=== PATIENT | female | born 1980 | race Two or more races ===

== ENCOUNTER 2022-05-12 10:12 | Emergency (ER) | payer OTHER ==
[2022-05-12 10:22] VITALS: BP 132/84; PULSE 79; RESP 18; TEMP 98.6; BMI 26.7
[2022-05-12] MEDS ORDERED: ACETAMINOPHEN 500 MG TABLET (FP) PO ONE (11:20)
[2022-05-12] MEDS ORDERED: BENZOCAINE/MENTH/CETYLPYRD CL 1 EACH LOZENGE MM ONE ×2 (11:26→11:29)
[2022-05-12 12:17] LABS: THROAT:GRP A STREP NOT DETECTED (NOTDETECTED)
== END 2022-05-12 12:43 | disposition home or self-care (01) ==
LOC: JER 10:12
DX: J02.9 Acute pharyngitis, unspecified (principal); R09.81 Nasal congestion; H10.31 Unspecified acute conjunctivitis, right eye; Z20.822 Contact with and (suspected) exposure to COVID-19
CPT/HCPCS: 0241U-QW; 87070; 87651; 99283-25

== ENCOUNTER 2022-07-01 21:15 | Emergency (ER) | payer OTHER ==
[2022-07-01 21:23] VITALS: RESP 18; BMI 27.3
[2022-07-01] MEDS ORDERED: ACETAMINOPHEN 1000 MG/100 ML BAG IVPB ONE (21:53)
[2022-07-01] MEDS ORDERED: LACTATED RINGERS SOLUTION 1000 ML INFUS.BAG IV ONE (21:53)
[2022-07-01] MEDS ORDERED: ONDANSETRON 4 MG/2 ML VIAL ONE (21:54)
[2022-07-01] MEDS ORDERED: ACETAMINOPHEN INJECTION 100 ML IVPB ONE (21:54)
[2022-07-01 22:24] LABS: BASO % 0.2 % (0-2.0); EOS % 0.5 % (0-4.5); HEMATOCRIT 31.8 % (32.4-45.2); HEMOGLOBIN 10.7 GM/dL (10.7-15.3); LYMPH % 6.8 % (8-40); MCH 26.8 pg (25.7-33.7); MCHC 33.7 g/dl (32.0-36.0); MEAN CELL VOLUME 79.6 fl (80-96); MEAN PLT VOLUME 9.6 fl (7.5-11.1); MONO % 17.8 % (3.8-10.2); NEUT % 74.7 % (42.8-82.8); PLATELET COUNT 248 10^3/uL (134-434); RDW 16.3 % (11.6-15.6); WHITE BLOOD COUNT 7.2 K/mm3 (4.0-10.0)
[2022-07-01 22:26] LABS: HCG,QUALITATIVE URINE Negative
[2022-07-01 22:27] LABS: EPI CELLS 35 /uL (0-25.1); HYALINE CASTS 0 /uL (0-3.1); URINE APPEARANCE CLEAR; URINE BACTERIA 249 /uL (0-1359); URINE BILIRUBIN NEGATIVE (NEGATIVE); URINE COLOR YELLOW; URINE GLUCOSE (UA) NEGATIVE (NEGATIVE); URINE KETONE NEGATIVE (NEGATIVE); URINE LEUK ESTERASE NEGATIVE (NEGATIVE); URINE NITRITE NEGATIVE (NEGATIVE); URINE PROTEIN 2+ (NEGATIVE); URINE RBC 62 /uL (0-23.9); URINE UROBILINOGEN 0.2 mg/dL (0.2-1.0); URINE WBC 9 /uL (0-25.8)
[2022-07-01 22:31] LABS: INR 1.1 (0.83-1.09); PROTHROMBIN TIME (PATIENT) 12.8 SEC (9.7-13.0)
[2022-07-01 22:34] LABS: ACTIVATED PTT 29.7 SECONDS (25.2-36.5)
[2022-07-01] MEDS ORDERED: morphine CARPU-JECT 4 MG/1 ML DISP.SYRIN IVPUSH ONE (22:35)
[2022-07-01] MEDS ORDERED: morphine SULFATE 4 MG/ML VIAL ONE (22:40)
[2022-07-01 22:41] LABS: POTASSIUM 3.5 mmol/L (3.5-5.1)
[2022-07-01 22:43] LABS: CALCIUM 9.2 mg/dL (8.5-10.1)
[2022-07-01 22:44] LABS: ALBUMIN 3.9 g/dl (3.4-5.0); BLOOD UREA NITROGEN 9.1 mg/dL (7-18)
[2022-07-01 22:47] LABS: CREATININE 0.7 mg/dL (0.55-1.3)
[2022-07-01 22:49] LABS: TOT PROT 7.7 g/dl (6.4-8.2)
[2022-07-01 22:56] LABS: BILIRUBIN,TOTAL 0.2 mg/dL (0.2-1)
[2022-07-02 00:52] VITALS: BP 128/77; PULSE 93; TEMP 98.4
== END 2022-07-02 01:38 | disposition home or self-care (01) ==
LOC: JER 21:15
PROC: 3E033NZ Introduction of Analgesics, Hypnotics, Sedatives into Peripheral Vein, Percutaneous Approach (ICD-10-PCS; principal; 2022-07-01)
PROC: 3E033GC Introduction of Other Therapeutic Substance into Peripheral Vein, Percutaneous Approach (ICD-10-PCS; 2022-07-01)
PROC: 3E033GC Introduction of Other Therapeutic Substance into Peripheral Vein, Percutaneous Approach (ICD-10-PCS; 2022-07-01)
DX: R10.31 Right lower quadrant pain (principal); R50.9 Fever, unspecified; R30.0 Dysuria; J10.1 Influenza due to other identified influenza virus with other respiratory manifestations; Z20.822 Contact with and (suspected) exposure to COVID-19
CPT/HCPCS: 0241U-QW; 36415; 74177-TC; 80053; 81003; 83605; 84703; 85025; 85610; 85730; 86850; 86900; 86901; 87040; 87086; 99285-25; Q9967

== ENCOUNTER 2023-02-23 16:56 | Emergency (ER) | payer OTHER ==
[2023-02-23 17:07] VITALS: BP 137/86; PULSE 82; RESP 17; TEMP 98.4; BMI 28.3
[2023-02-23 18:53] LABS: BASO % 0.5 % (0-2.0); EOS % 0.6 % (0-4.5); HEMATOCRIT 33.1 % (32.4-45.2); HEMOGLOBIN 10.6 GM/dL (10.7-15.3); LYMPH % 19.8 % (8-40); MCH 25.8 pg (25.7-33.7); MCHC 31.9 g/dl (32.0-36.0); MEAN CELL VOLUME 80.9 fl (80-96); MEAN PLT VOLUME 8.6 fl (7.5-11.1); NEUT % 67.1 % (42.8-82.8); PLATELET COUNT 336 10^3/uL (134-434); RBC 4.09 M/mm3 (3.60-5.2); RDW 14.8 % (11.6-15.6); WHITE BLOOD COUNT 8.2 K/mm3 (4.0-10.0)
[2023-02-23 19:45] LABS: POTASSIUM 3.3 mmol/L (3.5-5.1)
[2023-02-23 19:46] LABS: CALCIUM 9.5 mg/dL (8.5-10.1)
[2023-02-23 19:47] LABS: BLOOD UREA NITROGEN 10.6 mg/dL (7-18)
[2023-02-23 19:50] LABS: CREATININE 0.6 mg/dL (0.55-1.3)
[2023-02-23] MEDS ORDERED: LIDOCAINE HCL 1%, 10 MG/ML (20ML VIAL) ONE (22:55)
[2023-02-23] MEDS ORDERED: AMOX TR/POT CLAV 875MG/125MG TABLETS (FP) PO ONE (23:27)
[2023-02-23] MEDS ORDERED: AMOX TR/POT CLAV 875MG/125MG TABLETS (FP) ONE (23:33)
== END 2023-02-23 23:44 | disposition home or self-care (01) ==
LOC: JERFT 16:56
DX: K02.9 Dental caries, unspecified (principal); K08.89 Other specified disorders of teeth and supporting structures; R22.0 Localized swelling, mass and lump, head
CPT/HCPCS: 36415; 70487-TC; 80048; 84703; 85025; 99285-25

== ENCOUNTER 2023-12-04 11:22 | Emergency (ER) | payer OTHER ==
[2023-12-04 11:29] VITALS: BP 140/97; PULSE 82; RESP 17; BMI 28.3
[2023-12-04 12:44] LABS: BASO % 0.4 % (0-2.0); EOS % 0.7 % (0-4.5); HEMOGLOBIN 10.7 GM/dL (10.7-15.3); LYMPH % 20.5 % (8-40); MCH 22.7 pg (25.7-33.7); MCHC 31.6 g/dl (32.0-36.0); MEAN CELL VOLUME 71.7 fl (80-96); MEAN PLT VOLUME 8.6 fl (7.5-11.1); MONO % 8.5 % (3.8-10.2); NEUT % 69.9 % (42.8-82.8); PLATELET COUNT 345 10^3/uL (134-434); RBC 4.74 M/mm3 (3.60-5.2); RDW 17.1 % (11.6-15.6); WHITE BLOOD COUNT 8.2 K/mm3 (4.0-10.0)
[2023-12-04 12:46] LABS: EPI CELLS 30 /uL (0-25.1); HYALINE CASTS 0 /uL (0-3.1); URINE APPEARANCE CLEAR; URINE BACTERIA 681 /uL (0-1359); URINE BILIRUBIN NEGATIVE (NEGATIVE); URINE COLOR YELLOW; URINE GLUCOSE (UA) NEGATIVE (NEGATIVE); URINE KETONE NEGATIVE (NEGATIVE); URINE LEUK ESTERASE 3+ (NEGATIVE); URINE NITRITE NEGATIVE (NEGATIVE); URINE PROTEIN NEGATIVE (NEGATIVE); URINE RBC 15 /uL (0-23.9); URINE UROBILINOGEN 0.2 mg/dL (0.2-1.0); URINE WBC 82 /uL (0-25.8)
[2023-12-04 13:13] LABS: CHLORIDE 106 mmol/L (98-107); POTASSIUM 3.7 mmol/L (3.5-5.1); SODIUM 138 mmol/L (136-145)
[2023-12-04 13:15] LABS: ANION GAP 6 mmol/L (4-13); BLOOD UREA NITROGEN 10.7 mg/dL (7-18); CALCIUM 9.6 mg/dL (8.5-10.1); CO2 26 mmol/L (21-32)
[2023-12-04 13:19] LABS: CREATININE 0.6 mg/dL (0.55-1.3); GLUCOSE,RANDOM 93 mg/dL (74-106)
[2023-12-04 14:11] LABS: HIV INTERPRETATION NEGATIVE (NEGATIVE)
== END 2023-12-04 13:54 | disposition home or self-care (01) ==
LOC: JER 11:22
DX: N39.0 Urinary tract infection, site not specified (principal); N91.2 Amenorrhea, unspecified
CPT/HCPCS: 36415; 80048; 81003; 84702; 84703; 85025; 86803; 87086; 87389; 99283-25

== ENCOUNTER 2023-12-16 09:03 | Emergency (ER) | payer OTHER ==
[2023-12-16 09:07] VITALS: BP 146/100; PULSE 97; RESP 16; TEMP 98.6; BMI 30.2
[2023-12-16] MEDS ORDERED: ONDANSETRON 4 MG/2 ML VIAL ONE (09:25)
[2023-12-16] MEDS ORDERED: MAG HYDROX/AL HYDROX/SIMETH 30 ML UNIT-DOSE CUP ONE (09:25)
[2023-12-16] MEDS ORDERED: FAMOTIDINE 20 MG TABLET ONE (09:25)
[2023-12-16] MEDS ORDERED: FAMOTIDINE 20 MG/50 ML IVPB 20 MG/50 ML MG IVPB ONE (09:42)
[2023-12-16] MEDS: ONDANSETRON 4 MG/2 ML VIAL IVPUSH ONE (09:55)
[2023-12-16] MEDS: FAMOTIDINE 20 MG/50 ML IVPB 20 MG/50 ML MG IVPB ONE (09:55)
[2023-12-16] MEDS: MAG HYDROX/AL HYDROX/SIMETH -MYLANTA- ORAL SUSPENSION PO ONE (09:55)
[2023-12-16] MEDS: FAMOTIDINE 20 MG TABLET PO ONE (09:55)
[2023-12-16 10:11] LABS: BASO % 0.1 % (0-2.0); EOS % 0.2 % (0-4.5); HEMATOCRIT 34.6 % (32.4-45.2); HEMOGLOBIN 10.7 GM/dL (10.7-15.3); LYMPH % 7.4 % (8-40); MCH 22.6 pg (25.7-33.7); MEAN PLT VOLUME 9.1 fl (7.5-11.1); MONO % 4.8 % (3.8-10.2); NEUT % 87.5 % (42.8-82.8); PLATELET COUNT 379 10^3/uL (134-434); RBC 4.74 M/mm3 (3.60-5.2); RDW 17.7 % (11.6-15.6); WHITE BLOOD COUNT 11.4 K/mm3 (4.0-10.0)
[2023-12-16 10:20] LABS: POTASSIUM 3.8 mmol/L (3.5-5.1)
[2023-12-16 10:23] LABS: BLOOD UREA NITROGEN 9.2 mg/dL (7-18)
[2023-12-16 10:25] LABS: CREATININE 0.6 mg/dL (0.55-1.3)
[2023-12-16 10:27] LABS: BILIRUBIN,TOTAL 0.4 mg/dL (0.2-1); TOT PROT 8.3 g/dl (6.4-8.2)
[2023-12-16] MEDS ORDERED: SUCRALFATE 1 GM TABLET (FP) ONE (10:40)
[2023-12-16] MEDS ORDERED: ACETAMINOPHEN INJECTION 100 ML ONE (10:40)
[2023-12-16] MEDS: ACETAMINOPHEN 1000 MG/100 ML BAG IVPB ONE (10:54)
[2023-12-16] MEDS: SUCRALFATE 1 GM TABLET (FP) PO ONE (11:42)
== END 2023-12-16 12:35 | disposition home or self-care (01) ==
LOC: JER 09:03
PROC: 3E033GC Introduction of Other Therapeutic Substance into Peripheral Vein, Percutaneous Approach (ICD-10-PCS; principal; 2023-12-16)
PROC: 3E033NZ Introduction of Analgesics, Hypnotics, Sedatives into Peripheral Vein, Percutaneous Approach (ICD-10-PCS; 2023-12-16)
PROC: 3E033GC Introduction of Other Therapeutic Substance into Peripheral Vein, Percutaneous Approach (ICD-10-PCS; 2023-12-16)
DX: K52.29 Other allergic and dietetic gastroenteritis and colitis (principal); R11.10 Vomiting, unspecified; R10.13 Epigastric pain; R10.33 Periumbilical pain
CPT/HCPCS: 36415; 80053; 83690; 84703; 85025; 99284-25; J0131

== ENCOUNTER 2024-06-14 19:44 | Emergency (ER) | payer OTHER ==
[2024-06-14 19:51] VITALS: BP 140/89; PULSE 99; RESP 18; TEMP 97.9; BMI 30.2
[2024-06-14] MEDS ORDERED: OXYMETAZOLINE 0.05% NASAL SOLUTION 15 ML BOTTLE NS PRN (20:27)
[2024-06-14] MEDS ORDERED: OLOPATADINE HCL 2% 2.5 ML BOTTLE OU ONE (20:28)
[2024-06-14] MEDS ORDERED: ACETAMINOPHEN 500 MG TABLET (FP) ONE (21:09)
[2024-06-14 22:05] LABS: ABSOLUTE IMMATURE GRANULOCYTES 0.04 x10^3/uL (0.0-0.031); BASOPHILS # 0.05 x10^3/uL (0.01-0.08); EOSINOPHIL % 2.6 % (0.7-5.8); EOSINOPHILS # 0.27 x10^3/uL (0.04-0.36); HEMATOCRIT 34.8 % (34.1-44.9); HEMOGLOBIN 10.4 g/dL (11.2-15.7); MCHC 29.9 g/dl (32.2-35.5); MEAN CELL VOLUME 75.3 fl (79.4-94.8); MEAN PLT VOLUME 10.7 fl (9.4-12.3); MONOCYTE # 0.89 x10^3/uL (0.24-0.86); MONOCYTE % 8.7 % (4.7-12.5); PLATELET COUNT 398 x10^3/uL (182-369); RDW 17.8 % (12.2-17.1)
[2024-06-14 22:15] LABS: EPI CELLS 18 /uL (0-25.1); HYALINE CASTS 0 /uL (0-3.1); URINE APPEARANCE CLEAR; URINE BACTERIA 31 /uL (0-1359); URINE BILIRUBIN NEGATIVE (NEGATIVE); URINE COLOR YELLOW; URINE GLUCOSE (UA) NEGATIVE (NEGATIVE); URINE KETONE NEGATIVE (NEGATIVE); URINE LEUK ESTERASE TRACE (NEGATIVE); URINE NITRITE NEGATIVE (NEGATIVE); URINE PROTEIN TRACE (NEGATIVE); URINE RBC 32 /uL (0-23.9); URINE WBC 8 /uL (0-25.8)
[2024-06-14] MEDS: ACETAMINOPHEN 500 MG TABLET (FP) PO ONE (22:15)
[2024-06-14 22:26] LABS: POTASSIUM 3.1 mmol/L (3.5-5.1)
[2024-06-14 22:28] LABS: ALBUMIN 3.9 g/dl (3.4-5.0); CALCIUM 9.6 mg/dL (8.5-10.1); MAGNESIUM 1.9 mg/dL (1.8-2.4)
[2024-06-14 22:32] LABS: CREATININE 0.6 mg/dL (0.55-1.3)
[2024-06-14 22:33] LABS: BILIRUBIN,TOTAL 0.1 mg/dL (0.2-1)
[2024-06-14] MEDS ORDERED: POTASSIUM CHLORIDE ORAL LIQUID 20 MEQ/15 ML ONE (22:53)
[2024-06-14] MEDS: POTASSIUM CHLORIDE ORAL LIQUID 20 MEQ/15 ML PO ONE (22:55)
[2024-06-14 23:15] LABS: HCV DIAGNOSTIC IN-HOUSE W/RFLX NON-REACTIVE (NONREACTIVE); HIV INTERPRETATION NEGATIVE (NEGATIVE)
== END 2024-06-14 23:02 | disposition home or self-care (01) ==
LOC: JER 19:44
DX: N92.0 Excessive and frequent menstruation with regular cycle (principal); R51.9 Headache, unspecified; R09.81 Nasal congestion; J30.9 Allergic rhinitis, unspecified
CPT/HCPCS: 0241U-QW; 36415; 80053; 81003; 83735; 85025; 86803; 87086; 87389; 99283-25

== ENCOUNTER 2024-11-23 04:23 | Emergency (ER) | payer SELFPAY ==
[2024-11-23] MEDS ORDERED: ANAPHYLAXIS KIT ONE (04:35)
[2024-11-23] MEDS: SODIUM CHLORIDE 0.9% 500 ML INFUS.BAG IV ONE (04:48)
[2024-11-23] MEDS: methylPREDNISolone NA SUCC 125 MG/2 ML VIAL IVPB ONE (04:48)
[2024-11-23 04:57] VITALS: TEMP 98.1; BMI 30.2
[2024-11-23] MEDS: FAMOTIDINE 20 MG/50 ML IVPB 20 MG/50 ML MG IVPB ONE (05:00)
[2024-11-23 06:18] VITALS: BP 134/75; PULSE 74; RESP 16
== END 2024-11-23 06:19 | disposition home or self-care (01) ==
LOC: JER 04:23
PROC: 3E033GC Introduction of Other Therapeutic Substance into Peripheral Vein, Percutaneous Approach (ICD-10-PCS; principal; 2024-11-23)
PROC: 3E033GC Introduction of Other Therapeutic Substance into Peripheral Vein, Percutaneous Approach (ICD-10-PCS; 2024-11-23)
PROC: 3E033GC Introduction of Other Therapeutic Substance into Peripheral Vein, Percutaneous Approach (ICD-10-PCS; 2024-11-23)
DX: R22.0 Localized swelling, mass and lump, head (principal); R06.02 Shortness of breath; R07.2 Precordial pain; L29.9 Pruritus, unspecified; T39.395A Adverse effect of other nonsteroidal anti-inflammatory drugs [NSAID], initial encounter
CPT/HCPCS: 99284-25